=== PATIENT | female | born 1970 | race Two or more races ===

== ENCOUNTER 2020-10-09 05:00 | Day surgery (SDC) | payer OTHER ==
[~2020-10-09 05:00] MED LIST: COZAAR50 MG PO; ORTHO TRI-7 DAYSX1 PO; TIROSINT25 MCG PO; VASOTEC10 MG NGT
== END 2020-10-09 10:40 | disposition home or self-care (01) ==
LOC: CIR.AMB 05:00
PROVIDERS: ATTEND Obstetrics & Gynecology
DX: N84.0 Polyp of corpus uteri (principal); Z20.822 Contact with and (suspected) exposure to COVID-19

== ENCOUNTER 2022-09-11 10:00 | Outpatient (CLI) | payer OTHER | END 2022-09-11 10:20 | disposition home or self-care (01) | LOC: MRI 10:00 | PROVIDERS: ATTEND Orthopaedic Surgery | DX: S83.242A Other tear of medial meniscus, current injury, left knee, initial encounter (principal) | CPT/HCPCS: 73721 ==